=== PATIENT | male | born 1985 | race Caucasian/White ===

== ENCOUNTER 2024-10-09 07:39 | Emergency (ER) | payer MEDICAID, SELFPAY ==
[2024-10-09] VITALS (7 sets, daily range): BP systolic 143–164; BP diastolic 95–103; PULSE 73–99; RESP 17–20; TEMP 36.4–36.8; O2SAT 91–100; BMI 25.8
--- NOTE | 2024-10-09 07:51 | XR_ITS ---
Examination: Hand, right 3 views Technique: Hand AP, oblique, lateral 3 views Date and time of exam: October 09, 2024 0759 hours INDICATIONS: Redness swelling and pain involving the right hand 3 days FINDINGS: Soft tissue swelling about the right hand especially dorsum of the hand No fracture No cortical bone destruction No foreign body IMPRESSION: No acute fracture No cortical bone destruction or foreign body
[2024-10-09] MEDS: DIPHTH,PERTUSS(ACELL),TET VAC 0.5 ML VIAL IMi (07:58)
[2024-10-09 09:09] LABS: Basophils # (Auto) 0.1 Thou/mm3 (0.0-0.2); Basophils % (Auto) 0 % (0-2.5); Eosinophils # (Auto) 0.1 Thou/mm3 (0.0-0.5); Eosinophils % (Auto) 1 % (0-10); Hematocrit 41.9 % (41.0-53.0); Hemoglobin 13.7 g/dL (13.5-16.0); Immature Granulocytes % (Auto) 0 % (0-0); Immature Granulocytes Auto 0.04 Thou/mm3 (0.00-0.00); Lymphocytes % (Auto) 9 % (10-50); Mean Corpuscular HGB Conc 32.7 g/dl (31.0-37.0); Mean Corpuscular Hemoglobin 29.5 pg (25.0-35.0); Mean Corpuscular Volume 90 fL (80-100); Monocytes # (Auto) 0.9 Thou/mm3 (0.0-0.8); Monocytes % (Auto) 8 % (0-12); Neutrophils # (Auto) 9.2 Thou/mm3 (1.8-7.7); Neutrophils % (Auto) 82 % (37-80); Nucleated Red Blood Cell % 0 /100 WBC (0); Platelet Count 405 Thou/mm3 (140-440); RDW Standard Deviation 42.9 fL (35.1-43.9); Red Blood Count 4.65 Miln/mm3 (4.50-5.90); White Blood Count 11.3 Thou/mm3 (3.8-10.6)
[2024-10-09 09:29] LABS: Alanine Aminotransferase 23 U/L (10-49); Albumin, Serum 3.9 gm/dL (3.5-5.0); Albumin/Globulin Ratio 1.3 (1.2-2.2); Alkaline Phosphatase 114 U/L (46-116); Anion Gap 3 (7-16); Aspartate Amino Transferase 13 U/L (0-34); BUN/Creatinine Ratio 15 Ratio (12-20); Bilirubin,Total 0.3 mg/dL (0.3-1.2); Blood Urea Nitrogen 9 mg/dL (9-23); C-Reactive Protein 9.4 mg/dL (0.0-0.9); Calcium 9.1 mg/dL (8.3-10.6); Calcium (Corrected) 9.2 mg/dL (8.5-10.1); Chloride 101 mMol/L (98-107); Creatinine (Component) 0.6 mg/dL (0.6-1.3); Estimated Creatinine Clearance 147.7 mL/min (>60); Glucose 106 mg/dL (74-106); Osmolality,Calculated 268 (275-295); Potassium 3.8 mMol/L (3.4-5.1); Sodium 135 mMol/L (136-145); Total Protein 6.9 gm/dL (5.7-8.2); eGFR > 60 See Note
[2024-10-09 09:36] LABS: Sed Rate (ESR) 45 mm/hr (0-15)
--- NOTE | 2024-10-09 10:30 | PD.EDRME ---
Rapid Medical Screening Exam RME Arrival date/time: 10/09/24 07:39 39-year-old male presents emergency department complaint of infection and swelling of right hand Chief Complaint: Medical Clearance Vital signs: Vital Signs Temperature 98.0 F 10/09/24 07:41 Pulse Rate 81 10/09/24 07:41 Respiratory Rate 18 10/09/24 07:41 Blood Pressure 164/102 H 10/09/24 07:41 Pulse Oximetry (%) 99 10/09/24 07:41 Oxygen Delivery Method Room Air 10/09/24 07:41
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
[2024-10-09 11:57] LABS: Basophils % (Auto) 0 % (0-2.5); Eosinophils # (Auto) 0.1 Thou/mm3 (0.0-0.5); Eosinophils % (Auto) 1 % (0-10); Hemoglobin 13.6 g/dL (13.5-16.0); Immature Granulocytes % (Auto) 1 % (0-0); Immature Granulocytes Auto 0.05 Thou/mm3 (0.00-0.00); Lymphocytes # (Auto) 1.4 Thou/mm3 (1.0-4.8); Lymphocytes % (Auto) 13 % (10-50); Mean Corpuscular HGB Conc 33.2 g/dl (31.0-37.0); Mean Corpuscular Hemoglobin 29.8 pg (25.0-35.0); Mean Corpuscular Volume 90 fL (80-100); Monocytes % (Auto) 9 % (0-12); Neutrophils # (Auto) 8.5 Thou/mm3 (1.8-7.7); Neutrophils % (Auto) 77 % (37-80); Nucleated Red Blood Cell % 0 /100 WBC (0); Platelet Count 384 Thou/mm3 (140-440); RDW Standard Deviation 42.7 fL (35.1-43.9); Red Blood Count 4.56 Miln/mm3 (4.50-5.90)
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
[2024-10-09] MEDS: PIPER/TAZO INJ 3.375 GM in SODIUM CHLORIDE 0.9% (P) 50 ML IV (14:00)
--- NOTE | 2024-10-09 14:57 | PC.CM ---
Addendum entered by Jennifer Schafer RN 10/10/24 07:38: Patient accepted at [facility] and left at 2130. Addendum entered by Jennifer Schafer RN 10/09/24 17:22: I faxed over information to [facility] and initiated a transfer. Packet started. Original Note: I called Dr. Carcamo [phone] and I left a message stating we had an patient in our ED needing hand specialist. I will reach out to [facility] and to [facility]. I receive a referral to transfer patient for Hand cellulitis, tenosynovitis, hand abscess. I contacted Yuki Darden to see if I could speak to Dr. Carcamo or Dr. Sahu. Ivonne states she thinks is in surgery and she is not sure if Dr. Jones is working today. Ivonne states if we speak to Dr. Carcamo and he agrees to accept patient then we can call her back to discuss transferring.
[2024-10-09] MEDS: oxyCODONE/APAP 5/325 TABLET 1 TAB PO (15:43)
--- NOTE | 2024-10-09 15:46 | PC.NURSE ---
PATIENT UPDATED ON PLAN OF CARE. BEING TRANSFERRED TO ANOTHER FACILITY THAT CAN PROVIDE HAND SURGEON.
--- NOTE | 2024-10-09 18:58 | PC.NURSE ---
IVY FROM [facility] RETURNED CALL WITH POSITIVE ACCEPTANCE BY DR BROOKLYN GOODWIN. ER TO ER. NPO AFTER MIDNIGHT. NURSE TO NURSE REPORT [phone]
--- NOTE | 2024-10-09 19:27 | PC.NURSE ---
REPORT CALLED TO BRADLEY CASTELAN AT RECEIVING FACILITY [facility].
== END 2024-10-09 21:38 | disposition short-term general hospital (02) ==
PROVIDERS: Nurse Practitioner Primary Care; Registered Nurse General Practice; Emergency Provider Emergency Medicine
DX: S60.551A Superficial foreign body of right hand, initial encounter (principal); L03.113 Cellulitis of right upper limb; M65.841 Other synovitis and tenosynovitis, right hand; W45.8XXA Other foreign body or object entering through skin, initial encounter; Z23 Encounter for immunization
CPT/HCPCS: 36415; 73130; 80053; 85025; 85652; 86140; 87040; 90471; 90715; 99285; J2543; J7050; A9270